=== PATIENT | male | born 1955 | race Caucasian/White ===

== ENCOUNTER 2019-11-05 15:20 | Outpatient (CLI) | payer OTHER | END 2019-11-05 15:28 | disposition home or self-care (01) | LOC: RAD 15:20 | PROVIDERS: ATTEND Physical Medicine & Rehabilitation | DX: M17.0 Bilateral primary osteoarthritis of knee (principal) ==

== ENCOUNTER 2019-11-06 13:21 | Outpatient (CLI) | payer OTHER | END 2019-11-06 13:29 | disposition home or self-care (01) | LOC: SONOGRAMA 13:21 → MAMO-SONO 13:45 | PROVIDERS: ATTEND Physical Medicine & Rehabilitation | DX: S96.912A Strain of unspecified muscle and tendon at ankle and foot level, left foot, initial encounter (principal); M76.62 Achilles tendinitis, left leg ==